=== PATIENT | male | born 1970 | race Caucasian/White ===

== ENCOUNTER 2017-05-08 20:00 | Emergency (ER) | payer MEDICAID ==
[~2017-05-08] VITALS: Ht 177.8 cm; Wt 80.0 kg
[2017-05-08 20:20] VITALS: BP 113/68
[2017-05-08 20:50] LABS: ASPARTATE AMINO TRANSFERASE 54 U/L (15-37); BLOOD UREA NITROGEN 10 mg/dL (7-18)
[2017-05-08 20:54] LABS: ACETAMINOPHEN < 2 mcg/mL (10-30)
== END 2017-05-09 06:16 | disposition home or self-care (01) ==
LOC: ED 23:59
DX: F44.89 Other dissociative and conversion disorders (principal)
CPT/HCPCS: 36415; 70450; 80053; 80307; 80329; 85025; 99285; G0480

== ENCOUNTER 2019-01-06 14:46 | Emergency (ER) | payer MEDICAID ==
[~2019-01-06] VITALS: Ht 165.1 cm; Wt 65.2 kg
[2019-01-06 15:29] LABS: BASOPHILS # (AUTO) 0.18 x10^3/uL (0-0.1); BASOPHILS % (AUTO) 1 % (0-1); EOSINOPHILS # (AUTO) 0.08 x10^3/uL (0-0.4); EOSINOPHILS % (AUTO) 1 % (1-7); LYMPHOCYTES # (AUTO) 3.88 x10^3/uL (1-3.4); LYMPHOCYTES % (AUTO) 30 % (22-44); MD NO; MEAN CORPUSCULAR HEMOGLOBIN 33.1 pg (27.5-34.5); MEAN CORPUSCULAR VOLUME 97.3 fL (81-97); MEAN PLATELET VOLUME 7.3 fL (7.4-10.4); MONOCYTES # (AUTO) 1.07 x10^3/uL (0.2-0.8); MONOCYTES % (AUTO) 8 % (2-9); NEUTROPHILS # (AUTO) 7.71 x10^3/uL (1.8-6.8); NEUTROPHILS % (AUTO) 60 % (42-75); PLATELET COUNT 425 x10^3/uL (130-400); RED BLOOD COUNT 4.54 x10^6/uL (4.38-5.82); RED CELL DISTRIBUTION WIDTH 13.6 % (9.4-14.8)
[2019-01-06] MEDS ORDERED: LIDOCAINE 1%, 10ML INFIL ONE (15:30)
[2019-01-06 15:43] LABS: ALANINE AMINOTRANSFERASE 41 U/L (12-78); ALBUMIN 3.2 g/dL (3.4-5.0); ANION GAP 9 mmol/L (5-15); CALCIUM 8.2 mg/dL (8.5-10.1); CHLORIDE 105 mmol/L (98-107)
[2019-01-06 15:45] LABS: CREATININE 0.71 mg/dL (0.7-1.3)
[2019-01-06 15:46] LABS: ALKALINE PHOSPHATASE 130 U/L (45-117); BILIRUBIN,TOTAL 0.2 mg/dL (0.2-1.0); TOTAL PROTEIN 7.7 g/dL (6.4-8.2)
[2019-01-06] MEDS ORDERED: LIDOCAINE-MPF 1%, 5ML ONE (17:17)
[2019-01-06] MEDS ORDERED: ONDANSETRON 2MG/ML, 2ML ONE (18:19)
[2019-01-06] MEDS ORDERED: SULFAMETH./TRIMETHOPRIM DS 800MG/160MG TABLET ONE (18:19)
[2019-01-06] MEDS ORDERED: ONDANSETRON 2MG/ML, 2ML IVPush ONE (18:30)
[2019-01-06] MEDS ORDERED: SULFAMETH./TRIMETHOPRIM DS 800MG/160MG TABLET PO ONE (18:30)
[2019-01-06] MEDS ORDERED: SODIUM CHLORIDE FLUSH 10ML SYR IVF ONE (18:30)
[2019-01-06] MEDS ORDERED: CEFAZOLIN PMX 1GM/50ML 50 ML IV ONE (18:30)
--- NOTE | 2019-01-06 18:30 | NUR ---
ABX REQUESTED FROM PHARMACY
--- NOTE | 2019-01-06 18:38 | NUR ---
NELI AT BEDSIDE FOR HAND I/D
[2019-01-06 20:27] VITALS: BP 127/56
== END 2019-01-06 20:30 | disposition home or self-care (01) ==
LOC: ED 19:36
DX: L02.414 Cutaneous abscess of left upper limb (principal); F32.9 Major depressive disorder, single episode, unspecified
CPT/HCPCS: 10060; 36415; 73564; 80053; 85025; 87040; 87070; 87077; 87186; 87205; 96365; 96375; 99284; J0690; J2405; J3490